=== PATIENT | female | born 1965 | race Caucasian/White ===

== ENCOUNTER 2017-09-15 11:05 | Emergency (ER) | payer BC, OTHER ==
[~2017-09-15] VITALS: Ht 167.6 cm; Wt 53.0 kg
[~2017-09-15 11:05] MED LIST: ALPR.25
[2017-09-15 11:09] VITALS: BP 152/69; PULSE 78; RESP 16; TEMP 97.6; O2SAT 100
--- NOTE | 2017-09-15 11:37 | PD ---
HPI Chief Complaint: GI Complaint Time Seen by Provider: 11:27 Travel History International Travel<30 days: No Contact w/Intl Traveler<30days: No Traveled to known affect area: No History of Present Illness HPI 52yo F with PMH of anxiety here with c/o diarrhea since last night. Said she also feels like she is having a panic attack. Denies any fever, chest pain, sob , n/v, abdominal pain, focal weakness or numbness. Pt has no facial numbness now even though it is stated in triage note. PFSH Past Medical History Anxiety: Yes Influenza Vaccination: No ?: Not Menopausal: Yes Social History Alcohol Use: Yes (BEER) Tobacco Use: Yes (1 PPD) Substance Use: No Allergies-Medications (Allergen,Severity, Reaction): Coded Allergies: amoxicillin (Unverified Allergy, Mild, 09/15/17) Reported Meds & Prescriptions Reported Meds & Active Scripts Active Review of Systems Except as stated in HPI: all other systems reviewed are Neg Physical Exam Narrative GENERAL: 52yo F not in distress. SKIN: Focused skin assessment warm/dry. HEAD: Atraumatic. Normocephalic. EYES: Pupils equal and round at 3mm bilaterally. EOMI. ENT: No nasal bleeding or discharge. Mucous membranes pink and moist. NECK: Trachea midline. No JVD. CARDIOVASCULAR: Regular rate and rhythm. No murmur appreciated. RESPIRATORY: No accessory muscle use. Clear to auscultation. Breath sounds equal bilaterally. GASTROINTESTINAL: Abdomen soft, non-tender, nondistended. MUSCULOSKELETAL: No obvious deformities. No clubbing. No cyanosis. No edema. NEUROLOGICAL: Awake and alert. No obvious cranial nerve deficits. Motor grossly within normal limits in all extremities. Sensation equal in bilateral face, arms, legs. Normal speech. PSYCHIATRIC: Appropriate mood and affect; insight and judgment normal. Data Data Last Documented VS Vital Signs Date Time Temp Pulse Resp B/P (MAP) Pulse Ox O2 Delivery O2 Flow Rate FiO2 09/15/17 12:41 78 16 131/77 (95) 98 Room Air 09/15/17 11:09 97.6 Orders Orders Lorazepam Inj (Ativan Inj) (09/15/17 11:45) Basic Metabolic Panel (Bmp) (09/15/17 11:31) Thyroid Stimulating Hormone (09/15/17 11:31) Electrocardiogram (09/15/17 ) Labs Laboratory Tests Test 09/15/17 12:00 Blood Urea Nitrogen 6 MG/DL Creatinine 0.55 MG/DL Random Glucose 94 MG/DL Calcium Level 8.0 MG/DL Sodium Level 136 MEQ/L Potassium Level 3.5 MEQ/L Chloride Level 103 MEQ/L Carbon Dioxide Level 22.2 MEQ/L Anion Gap 11 MEQ/L Estimat Glomerular Filtration Rate 115 ML/MIN Thyroid Stimulating Hormone 3rd Gen 1.550 uIU/ML MDM Medical Decision Making Medical Screen Exam Complete: Yes Emergency Medical Condition: Yes Interpretation(s) EKG: NSR 73bpm. Normal axis. No ST segment elevation or depression. Differential Diagnosis Anxiety vs. dehydration vs. electrolyte abnormality Narrative Course 52yo F with diarrhea and complaint of panic attack. Pt has history of anxiety and used to take xanax. No focal neurologic deficits on exam. BMP unremarkable. TSH normal. Pt given ativan and feels 100% better. Denies any more symptoms and wants to go home. Pt can orally hydrate. Return precautions given. Diagnosis Primary Impression: Anxiety Patient Instructions: General Instructions Departure Forms: Tests/Procedures Additional Instructions: Please follow up with your primary care physician in 2-3 days. Return to the ED if symptoms worsen. Med/Other Pt SpecificInfo: No Change to Meds Disposition: 01 DISCHARGE HOME Condition: Stable Kourtney Keen DO Sep 15, 2017 11:36
[2017-09-15] MEDS ORDERED: LORazepam 2 MG/ML VIAL IV PUSH ONE (11:45)
[2017-09-15 11:47] VITALS: BP 144/80; PULSE 77; RESP 16; O2SAT 97
[2017-09-15 12:26] LABS: BICARBONATE 22.2 MEQ/L (21.0-32.0)
[2017-09-15 12:29] LABS: CREATININE 0.55 MG/DL (0.50-1.00)
[2017-09-15 12:41] VITALS: BP 131/77; PULSE 78; RESP 16; O2SAT 98
--- NOTE | 2017-09-15 13:55 | EKG ---
Date Performed: 09/15/2017 Time Performed: 11:41:51 PTAGE: 52 years EKG: Sinus rhythm NORMAL ECG NO PREVIOUS TRACING DOCTOR: Dontrell Matthew Interpretating Date/Time 09/15/2017 13:55:14
== END 2017-09-15 12:53 | disposition home or self-care (01) ==
LOC: PHED 11:05
DX: F41.9 Anxiety disorder, unspecified (principal); R19.7 Diarrhea, unspecified; F17.200 Nicotine dependence, unspecified, uncomplicated
CPT/HCPCS: 80048; 84443; 93005; 96374; 99284; J2060